=== PATIENT | female | born 1950 | race Caucasian/White ===

== ENCOUNTER → 2020-06-12 | Outpatient (CLI) | payer MEDICARE | LOC: M.RAD 16:46 | PROVIDERS: ATTEND Registered Nurse Diabetes Educator | DX: I51.7 Cardiomegaly (principal); R79.81 Abnormal blood-gas level; R19.5 Other fecal abnormalities ==

== ENCOUNTER 2021-02-26 17:27 | Inpatient (IN) | payer MEDICARE ==
[~2021-02-26] VITALS: Ht 160 cm; Wt 88.9 kg
[2021-02-26 17:45] VITALS: BP 172/64
[2021-02-26] MEDS ORDERED: ELIQUIS5 MG PO (17:48)
[2021-02-26] MEDS ORDERED: FUROSEMIDE 40 M40 MG PO (17:49)
[2021-02-26] MEDS ORDERED: KLOR-CON M2020 MEQ PO (17:49)
[2021-02-26] MEDS ORDERED: METFORMIN HCL500 MG PO (17:49)
[2021-02-26] MEDS ORDERED: GLYBURIDE 5 MG T5 M1 PO (17:49)
[2021-02-26 17:57] LABS: URINE BILIRUBIN NEGATIVE (Negative); URINE BLOOD NEGATIVE (Negative); URINE CLARITY CLEAR; URINE COLOR YELLOW; URINE GLUCOSE-RANDOM NEGATIVE (Negative); URINE KETONES NEGATIVE (Negative); URINE LEUKOCYTES-REFLEX NEGATIVE (Negative); URINE NITRITE-REFLEX NEGATIVE (Negative); URINE PROTEIN NEGATIVE (Negative); URINE SPECIFIC GRAVITY <= 1.005 (1.005-1.030); URINE UROBILINOGEN 0.2 E.U./dl (0.2-1.0)
[2021-02-26 18:06] LABS: ABSOLUTE BASOPHILS 0.1 thou/uL (0.0-0.2); ABSOLUTE EOSINOPHILS 0.2 thou/uL (0.0-0.7); ABSOLUTE LYMPHOCYTES 1.7 thou/uL (0.8-5.3); ABSOLUTE MONOCYTES 0.6 thou/uL (0.0-1.2); ABSOLUTE NEUTROPHILS 4.9 thou/uL (1.6-8.1); EOSINOPHILS 2.9 %; HEMATOCRIT 33.2 % (37.0-47.0); HEMOGLOBIN 9.5 gm/dL (12.0-15.0); LYMPHOCYTES 23.1 %; MCH 18.4 pg (26.0-34.0); MCHC 28.6 g/dL (28.0-37.0); MCV 64.4 fL (80.0-100.0); MONOCYTES 8.3 %; MPV 8.2 fl. (7.2-11.1); NUCLEATED RBCS 0 /100WBC; PLATELET COUNT* 286 thou/uL (150-400); POLYS 64.7 %; RBC 5.16 mil/uL (4.20-5.00); RDW-CV 18.7 % (10.5-14.5); WBC 7.6 thou/uL (4.0-11.0)
[2021-02-26] MEDS ORDERED: EFFER-K 20 MEQ20 ME1 PO (18:14)
[2021-02-26] MEDS ORDERED: KAPSPARGO SPRI200 MG PO (18:15)
[2021-02-26] MEDS ORDERED: AMARYL2 M1 PO (18:15)
[2021-02-26] MEDS ORDERED: LANOXIN 0.25M0.25 M1 PO (18:16)
[2021-02-26] MEDS ORDERED: DILTIAZEM ER180 M2 PO (18:16)
[2021-02-26] MEDS ORDERED: PROTONIX40 M2 PO (18:16)
[2021-02-26] MEDS ORDERED: COZAAR 25 MG TA25 M1 PO (18:17)
[2021-02-26 18:19] LABS: CALCIUM 8.4 mg/dL (8.5-10.1)
[2021-02-26 18:26] LABS: BE 4.4 mmol/L (-2 to +3); PCO2 42.1 mmHg (35.0-45.0); PO2 66.8 mmHg (75.0-100.0); pH 7.452 (7.340-7.450)
[2021-02-26 18:29] LABS: ALBUMIN 3.5 g/dL (3.4-5.0)
--- NOTE | 2021-02-26 18:46 | NUR ---
PT SON REQUESTS TO BE UPDATED WITH [facility] AT [phone]. PT SON IS CESAR PIEDRA
[2021-02-26 18:57] LABS: ANISOCYTOSIS 1+; LARGE PLATELETS FEW; PLATELET ESTIMATE ADEQUATE
[2021-02-26 18:58] LABS: MICROCYTES 2+; POLYCHROMASIA Occasional
[2021-02-26 18:59] LABS: HYPOCHROMASIA 2+; TARGET CELLS Occasional
[2021-02-26 20:05] VITALS: BP 168/62
[2021-02-26 20:45] VITALS: BP 167/67
--- NOTE | 2021-02-27 03:19 | NUR ---
PT ARRIVED TO 2W RM 215 FROM ER AT 2044. ALERT ORIENTED, STEADY GAIT. IN ISOLATION PENDING PCR. PT TEACHING RE COLLECTION OF SPUTUM. CUP PROVIDED FOR COLLECTION. URINE COLLECTION HAT IN BATHROOM FOR URINE COLLECTION. ON 4 LITERS NC. O2 SATS 90S. TELEMETRY SHOWS AFIB. ON 2000 ML FR. NPO FOR CARDIOLOGY CONSULT.
[2021-02-27 04:00] VITALS: BP 160/67
--- NOTE | 2021-02-27 07:25 | NUR ---
CHANGE OF SHIFT BEDSIDE REPORT GIVEN PATIENT SEEN AT BEDSIDE IN BED ASLEEP ASSUMED PATIENT CARE
[2021-02-27 08:00] VITALS: BP 147/53
[2021-02-27 09:52] LABS: CHOLESTEROL 125 mg/dL (<200); HDL CHOLESTEROL 36 mg/dL (>40); LDL CHOLESTEROL 77 mg/dL (<100); TC:HDL 3.5 Ratio (Not establshd); TRIGLYCERIDE 60 mg/dL (<150); VLDL 12 mg/dL (<40)
[2021-02-27 09:53] LABS: SERUM ASSESSMENT Clear
--- NOTE | 2021-02-27 11:56 | EKG ---
[place] [address] ELECTROCARDIOGRAM REPORT Name: ANNETTE PIEDRA Room: [address] ADM IN .R.#: [id number] Admission: 02/26/21 Attend Phys: Anand Vasquez, Discharge: Date of : 50 Date of Service: 02/26/21 1757 Report #: [id number] THIS REPORT FOR: //name// [facility] ED Test Date: 2021-02-26 Test Time: 17:57:20 Pat Name: ANNETTE PIEDRA Department: Room: [facility] Gender: F Service Delivery Management Consultant: [place] : 1950 Requested By: Andrew Schultz Order Number: [id number] MD: Yo García Measurements Intervals [place] Rate: 70 P: IN: QRS: -28 QRSD: 105 T: 141 QT: 395 QTc: 427 Interpretive Statements Atrial fibrillation Borderline left axis deviation Abnormal R-wave progression, late transition Nonspecific repol abnormality, diffuse leads No previous ECG available for comparison Electronically Signed On 02-27-2021 11:56:01 CDT by Yo García [email or web address] <ELECTRONICALLY SIGNED> By: Yo García MD, FAC 02/27/21 1156 1757 1757 Yo García MD, [facility] /EPI
--- NOTE | 2021-02-27 11:59 | 2DMMODE ---
[place] [address] 2 D/M-MODE ECHOCARDIOGRAM Name: ANNETTE PIEDRA Room: [address] IN [facility]#: [id number] Admission: 02/26/21 Attend Phys: Anand Vasquez, Discharge: Date of : 50 Date of Service: 02/27/21 1159 Report #: [id number] THIS REPORT FOR: cc: Leatha Caballero Tammy RNP Liston, Michael J. MD [facility] ~ APPROVED REPORT Study performed: 02/27/2021 11:02:24 EXAM: Comprehensive 2D, Doppler, and color-flow Echocardiogram Patient Location: In-Patient Room #: [facility] Status: routine BSA: 1.92 HR: 68 bpm BP: 147/53 mmHg Rhythm: NSR Other Information Study Quality: Good Indications Atrial Fibrillation 2D Dimensions IVSd: 8.35 (7-11mm) LVOT Diam: 20.52 (18-24mm) LVDd: 55.75 mm PWd: 8.37 (7-11mm) Ascending Ao: 36.35 (22-36mm) LVDs: 33.48 (25-40mm) Aortic Root: 30.66 mm Volumes Left Atrial Volume (Systole) LA ESV Index: 70.90 mL/m2 Aortic Valve AoV Peak Jose.: 1.54 m/s AO Peak Gr.: 9.49 mmHg LVOT Max P.68 mmHg AO Mean Gr.: 4.49 mmHg LVOT Mean P.05 mmHg LVOT Max V: 1.08 m/s AO V2 VTI: 26.47 cm LVOT Mean V: 0.64 m/s CHERISE (VTI): 2.64 cm2 LVOT V1 VTI: 21.14 cm AI Vance: 2.94 m/s2 [place] [address] 2 D/M-MODE ECHOCARDIOGRAM Name: ANNETTE PIEDRA Room: [address] IN [facility]#: [id number] Admission: 02/26/21 Attend Phys: Anand Vasquez, Discharge: Date of : 50 Date of Service: 02/27/21 1159 Report #: [id number] AI PHT: 377.17 ms TDI Medial E' Jose.: 0.12 m/s Pulmonary Valve PV Peak Jose.: 1.39 m/s PV Peak Gr.: 7.72 mmHg Tricuspid Valve RAP Estimate: 5.00 mmHg TR Peak Gr.: 48.35 mmHg RVSP: 53.00 mmHg PA Pressure: 53.00 mmHg Left Ventricle The left ventricle is normal size. There is normal LV segmental wall motion. There is normal left ventricular wall thickness. Left ventricular systolic function is normal. LVEF is 55-60%. This study is not technically sufficient to allow evaluation of the LV diastolic function due to atrial fibrillation. Right Ventricle The right ventricle is normal size. The right ventricular systolic function is normal. Atria Left atrium is severely dilated. Right atrium is moderately dilated. Aortic Valve The aortic valve is normal in structure. Mild aortic regurgitation. There is no aortic valvular stenosis. Mitral Valve The mitral valve is normal in structure. Mild mitral regurgitation. No evidence of mitral valve stenosis. Tricuspid Valve The tricuspid valve is normal in structure. Mild tricuspid regurgitation. Moderate pulmonary hypertension. The RVSP is 55-60 mmHg. Pulmonic Valve The pulmonary valve is normal in structure. Mild pulmonic regurgitation. [place] [address] 2 D/M-MODE ECHOCARDIOGRAM Name: RAJINDEREduANNETTE Cook Room: [address]#: [id number] Admission: 02/26/21 Attend Phys: Anand Vasquez, Discharge: Date of : 50 Date of Service: 02/27/21 1159 Report #: [id number] The aortic root is normal in size. IVC is normal in size and collapses >50% with inspiration. Pericardium There is no pericardial effusion. <Conclusion> The left ventricle is normal size. There is normal left ventricular wall thickness. Left ventricular systolic function is normal. LVEF is 55-60%. This study is not technically sufficient to allow evaluation of the LV diastolic function due to atrial fibrillation. There is normal LV segmental wall motion. Left atrium is severely dilated. Right atrium is moderately dilated. Mild aortic regurgitation. Mild mitral regurgitation. Mild tricuspid regurgitation. Moderate pulmonary hypertension. The RVSP is 55-60 mmHg. Mild pulmonic regurgitation. IVC is normal in size and collapses >50% with inspiration. <ELECTRONICALLY SIGNED> By: Yo García MD, FACC 02/27/21 1159 1159 1159 Yo García MD, FACC /INF
[2021-02-27 12:51] VITALS: BP 98/47
[2021-02-27 17:00] VITALS: BP 133/41
[2021-02-27 20:00] VITALS: BP 123/45
--- NOTE | 2021-02-27 20:00 | NUR ---
RECEIVED REPORT AND ASSUMED CARE OF PT, ASSESSMENT COMPLETED. SITTING UPON SIDE OF BED WITH O2 OFF, STATES IT BOTHERS HER. EDUCATION GIVEN, APPIED HUMIDITY AND ATTEMPTED TO FIND CANULA WITH SHORTER PONGS. O2 SAT 95% WITH 4L ON. ASHLEY LOWER LEGS/FEET/ANKLES WITH 2-3+ EDEMA. DISCUSSED FLUID RESTRICTION AND ELEVATION OF LEGS. TELEMETRY ON SHOWING A-FIB WITH SLOW RATE. WILL CONT TO MONITOR AND ASSIST NEEDED.
[2021-02-27 23:58] VITALS: BP 119/48
[2021-02-28 04:04] VITALS: BP 123/52
[2021-02-28 04:29] LABS: HEMATOCRIT 29.4 % (37.0-47.0); HEMOGLOBIN 8.3 gm/dL (12.0-15.0); MCH 18.4 pg (26.0-34.0); MCHC 28.3 g/dL (28.0-37.0); MPV 8.3 fl. (7.2-11.1); RBC 4.52 mil/uL (4.20-5.00); RDW-CV 18.5 % (10.5-14.5); WBC 12.3 thou/uL (4.0-11.0)
[2021-02-28 04:53] LABS: CALCIUM 8.5 mg/dL (8.5-10.1); CREATININE 1.2 mg/dL (0.6-1.3); MAGNESIUM 1.9 mg/dL (1.8-2.4); POTASSIUM 3.6 mmol/L (3.5-5.1)
--- NOTE | 2021-02-28 07:02 | NUR ---
WHEN PT SLEEPING SOUNDLY, HEART RATE DECREASED INTO 40'S, RESP REGULAR AND UNLABORED, ASYMPTOMATIC. VOIDING WELL. PT STATES ONLY SM AMT OF INTAKE DURING NIGHT. PT ASKING FOR SHOWER AND WHEN OFFERED THIS AM, REQUESTED TO KEEP SLEEPING. TELEMETRY SHOWING A-FIB WITH OCC PVC. NO CHANGE IN ASSESSMENT. HS GOALS OF REST AND SAFETY ACHIEVED. HOURLY ROUNDING OBSERVED.
[2021-02-28 08:00] VITALS: BP 135/50
[2021-02-28 12:00] VITALS: BP 134/53
--- NOTE | 2021-02-28 13:57 | NUR ---
Pt is covid negative, out of iso. Pt is A&O. Resides at home with her son, normally active and independent. No DME. Pt does not wear home o2, if she continues to require, she will need and ex ox at dc. No hx of HH or SNF. Goal is home at dc. Anticipate dc in a few days.
[2021-02-28 16:00] VITALS: BP 135/43
[2021-02-28 20:00] VITALS: BP 140/50
--- NOTE | 2021-02-28 20:00 | NUR ---
RECEIVED REPORT AND ASSUMED CARE OF PT, ASSESSMENT COMPLETED. PT AMBULATING AROUND ROOM WITH O2 ON, O2 SAT CHECKED AT 94% ON RA. INSTRUCTED PT TO RESUME O2 WHEN LAYING DOWN OR GOING TO SLEEP AT 2L/NC. ASHLEY ZHENG HOSE ON DUE TO 2+ EDEMA TO LEGS. TELEMETRY ON SHOWING A-FIB WITH BBB. WILL CONT TO MONITOR AND ASSIST NEEDED.
--- NOTE | 2021-02-28 20:47 | NUR ---
patient resting in room with belongings and call light in place. Report given to ferryboat ticket taker nurse.
[2021-03-01 00:12] VITALS: BP 130/49
[2021-03-01 04:51] VITALS: BP 118/38
[2021-03-01 05:10] LABS: HEMATOCRIT 28.5 % (37.0-47.0); HEMOGLOBIN 8.3 gm/dL (12.0-15.0); MCH 18.7 pg (26.0-34.0); MCHC 29.2 g/dL (28.0-37.0); MCV 63.9 fL (80.0-100.0); MPV 8.1 fl. (7.2-11.1); RBC 4.46 mil/uL (4.20-5.00); RDW-CV 18.5 % (10.5-14.5); WBC 10.9 thou/uL (4.0-11.0)
[2021-03-01 05:27] LABS: CALCIUM 8.3 mg/dL (8.5-10.1); POTASSIUM 3.3 mmol/L (3.5-5.1)
--- NOTE | 2021-03-01 06:30 | NUR ---
SLEPT WELL TONIGHT WITH O2 ON. PT REMOVED ZHENG HOSE STATING THEY MADE HER LEGS SWELL. ATTEMPTED TO EDUCATE BUT DID NOT UNDERSTAND. VOIDING WELL. STATES DRANK VERY LITTLE DURING NIGHT. TELEMETRY CONT TO SHOW A-FIB. NO CHANGE IN ASSESSMENT. HS GOALS OF REST, SAFETY AND OXYGENATION. HOURLY ROUNDING OBSERVED.
[2021-03-01 08:00] VITALS: BP 183/57
[2021-03-01 11:30] VITALS: BP 137/73
[2021-03-01 16:00] VITALS: BP 123/48
--- NOTE | 2021-03-01 18:57 | NUR ---
patient resting in room with O@ at 1 Liter, ZHENG hose on, SLIV, no pain stated, with all belongings in reach with call light. Report to be given to lunchroom mother nurse.
[2021-03-01 20:00] VITALS: BP 140/60
[2021-03-01 20:34] LABS: MAGNESIUM 1.9 mg/dL (1.8-2.4); POTASSIUM 3.4 mmol/L (3.5-5.1)
[2021-03-02 00:07] VITALS: BP 132/52
[2021-03-02 04:31] VITALS: BP 125/51
[2021-03-02 05:49] LABS: HEMATOCRIT 29.2 % (37.0-47.0); HEMOGLOBIN 8.5 gm/dL (12.0-15.0); MCH 18.7 pg (26.0-34.0); MCHC 29.3 g/dL (28.0-37.0); MCV 63.9 fL (80.0-100.0); MPV 8.1 fl. (7.2-11.1); RBC 4.57 mil/uL (4.20-5.00); RDW-CV 18.6 % (10.5-14.5)
[2021-03-02 05:54] LABS: CALCIUM 8.1 mg/dL (8.5-10.1); CREATININE 0.9 mg/dL (0.6-1.3); POTASSIUM 3.4 mmol/L (3.5-5.1)
[2021-03-02 08:00] VITALS: BP 135/62
[2021-03-02] MEDS ORDERED: CARDIZEM CD120 MG PO (09:19)
[2021-03-02] MEDS ORDERED: HYDRALAZINE 2525 MG PO (09:19)
[2021-03-02] MEDS ORDERED: TOPROL XL100 MG PO (09:19)
[2021-03-02] MEDS ORDERED: LANOXIN125 MCG PO (09:19)
[2021-03-02] MEDS ORDERED: CEFDINIR300 MG PO (09:19)
[2021-03-02] MEDS ORDERED: COZAAR100 MG PO (09:19)
[2021-03-02 11:45] VITALS: BP 127/65
[2021-03-02 15:44] VITALS: BP 127/65
[2021-03-02 15:56] VITALS: BP 127/65
--- NOTE | 2021-03-02 16:28 | NUR ---
O2 was checked through afternoon and continued to be 94% on room air. patient iv taken out, heart monitor taken off, all belongings gathered, son is here to take home, patient has d/c papers and education and verbalized understanding.
== END 2021-03-02 16:40 | disposition home or self-care (01) | DRG 177 ==
LOC: M.ERS 17:27 → M.TBA-ER 18:34 → M.2W 18:34
PROVIDERS: Family Medicine; Internal Medicine Cardiovascular Disease; Registered Nurse; ADMIT Internal Medicine; ATTEND Internal Medicine
DX: J15.6 Pneumonia due to other Gram-negative bacteria (principal); J96.01 Acute respiratory failure with hypoxia; I50.33 Acute on chronic diastolic (congestive) heart failure; D68.69 Other thrombophilia; E87.2 Acidosis; I48.20 Chronic atrial fibrillation, unspecified; E11.9 Type 2 diabetes mellitus without complications; E87.6 Hypokalemia; E78.5 Hyperlipidemia, unspecified; I11.0 Hypertensive heart disease with heart failure; D64.9 Anemia, unspecified; E66.9 Obesity, unspecified; Z20.822 Contact with and (suspected) exposure to COVID-19; Z79.01 Long term (current) use of anticoagulants; Z79.84 Long term (current) use of oral hypoglycemic drugs; Z79.899 Other long term (current) drug therapy; Z88.0 Allergy status to penicillin; Z68.34 Body mass index [BMI] 34.0-34.9, adult